=== PATIENT | female | born 1930 | race Caucasian/White ===

== ENCOUNTER 2017-06-24 11:24 | Outpatient (CLI) | payer MEDICARE, OTHER ==
--- NOTE | 2017-06-25 11:52 | Mammography Report ---
DIGITAL SCREENING MAMMOGRAM: 06/24/2017 CLINICAL INDICATION: An 86-year-old with history of benign biopsies, family history of breast cancer, for screening. COMPARISON: 06/2016, 06/2015, 06/2014, 11/2012, 10/2011, 08/2010. TECHNIQUE: Routine CC and MLO projections were obtained of the breasts. FINDINGS: The breasts again demonstrate scattered fibroglandular densities bilaterally. Postoperativ e changes are stable. Coarse and punctate, typically benign calcifications are present. No suspicious masses, clustered microcalcifications, or regions of architectural distortion are identified. IMPRESSION: BENIGN FINDINGS. RECOMMENDATION: ROUTINE ANNUAL SCREENING UNLESS OTHERWISE CLINICALLY INDICATED. BIRADS CATEGORY 2-BENIGN FINDINGS. STANDARD QUALIFYING STATEMENTS 1. This examination was reviewed with the aid of Computer-Aided Detection (CAD). 2. A negative or benign imaging report should not delay biopsy if clinically suspicious findings are present. Consider surgical consultation if warranted. More than 5% of cancers are not identified by i maging. 3. Dense breasts may obscure an underlying neoplasm. JOB #: [id number] EXT JOB #:[id number]
== END 2017-06-24 11:25 | disposition home or self-care (01) ==
LOC: DI.S 11:24
PROVIDERS: ATTEND Internal Medicine
DX: Z12.31 Encounter for screening mammogram for malignant neoplasm of breast (principal); Z80.3 Family history of malignant neoplasm of breast
CPT/HCPCS: 77067

== ENCOUNTER 2018-03-11 13:27 | Outpatient (CLI) | payer MEDICARE, OTHER ==
--- NOTE | 2018-03-11 17:33 | CT Report ---
CT BRAIN WITHOUT CONTRAST: 03/11/2018 CLINICAL INDICATION: Memory loss. TECHNIQUE: Axial CT images of the brain were obtained without intravenous contrast. In accordance with CT protocol optimization, one or more of the following dose reduction techniques were utilized for this exam: Automated exposure control, adjustment of mA and/or KV based on patient size, or use of iterative reconstructive technique. No previous CT is available for comparison. FINDINGS: The ventricles and sulci demonstrate mild symmetric enlargement, compatible with atrophy. Chronic ischemic changes are seen in the periventricular white matter structures. There is no evidence of hemorrhage, mass effect, or midline shift. The visualized orbital contents and paranasal sinuses appear unremarkable. IMPRESSION: ATROPHY AND CHRONIC ISCHEMIC CHANGES. NO EVIDENCE OF HEMORRHAGE OR MASS EFFECT. TD: 03/11/2018 15:53
== END 2018-03-11 13:28 | disposition home or self-care (01) ==
LOC: DI 13:27
PROVIDERS: ATTEND Internal Medicine
DX: R90.89 Other abnormal findings on diagnostic imaging of central nervous system (principal)
CPT/HCPCS: 70450

== ENCOUNTER 2018-07-20 08:38 | Outpatient (CLI) | payer MEDICARE, OTHER | END 2018-07-20 08:39 | disposition critical access hospital (66) | LOC: EMS 08:38 | PROVIDERS: ATTEND Surgery | DX: S01.81XA Laceration without foreign body of other part of head, initial encounter (principal); R49.0 Dysphonia; W19.XXXA Unspecified fall, initial encounter; Y92.003 Bedroom of unspecified non-institutional (private) residence as the place of occurrence of the external cause | CPT/HCPCS: A0425; A0429 ==

== ENCOUNTER 2018-07-20 09:14 | Emergency (ER) | payer MEDICARE, OTHER ==
[2018-07-20] MEDS ORDERED: ACETAMINOPHEN 1,000 MG/100 ML 100 ML IV STA ×2 (09:22→10:39)
[2018-07-20] MEDS ORDERED: IOPAMIDOL-300 100 ML VIAL ONE (09:32)
[2018-07-20 10:12] LABS: BASOPHILS % (AUTO) 0.2 %; CALCIUM 10.2 mg/dL (8.5-10.3); CREATININE 0.6 mg/dL (0.4-1.0); EOSINOPHILS % (AUTO) 0.3 %; LYMPHOCYTES # (AUTO) 1.5 10^3/uL (1.5-3.5); LYMPHOCYTES % (AUTO) 17.1 %; MEAN CORPUSCULAR HEMOGLOBIN 31.6 pg (27.0-31.0); MEAN CORPUSCULAR HGB CONC 33.9 g/dL (32.0-36.0); MEAN CORPUSCULAR VOLUME 93.2 fL (81.0-99.0); MEAN PLATELET VOLUME 8.7 fL (7.9-10.8); MONOCYTES # (AUTO) 0.7 10^3/uL (0.0-1.0); MONOCYTES % (AUTO) 7.7 %; NEUTROPHILS # (AUTO) 6.5 10^3/uL (1.5-6.6); NEUTROPHILS % (AUTO) 74.7 %; PLT - PLATELET COUNT 225 10^3/uL (130-450); RED BLOOD COUNT 4.76 10^6/uL (4.20-5.40); RED CELL DISTRIBUTION WIDTH 14.1 % (12.0-15.0); WHITE BLOOD COUNT 8.7 x10^3/uL (4.8-10.8)
[2018-07-20] MEDS ORDERED: IOPAMIDOL-300 100 ML VIAL IVP ONE (10:27)
--- NOTE | 2018-07-20 10:29 | ED Physician Documentation ---
History of Present Illness - Stated complaint Stated Complaint: GLF - Chief complaint Chief Complaint: Laceration - Additonal information Additional information: hx from pt 87 female got up to go to the bathroom was woozy and fell striking chin and ant neck on unknown object lac to chin swollen neck and hoarse voice no chest pain no abd pain no NV no blood thinners no numbness or weakness Review of Systems Constitutional: denies: Fever Cardiac: denies: Chest pain / pressure Respiratory: denies: Dyspnea GI: denies: Abdominal Pain, Nausea, Vomiting Musculoskeletal: reports: Neck pain Neurologic: reports: Head injury. denies: Focal weakness, Numbness, Syncope, Headache Endocrine: denies: Easy bruising / bleeding Immunocompromised: denies: Immunocompromised PD PAST MEDICAL HISTORY - Past Medical History Past Medical History: Yes Cardiovascular: Hypertension Respiratory: None Endocrine/Autoimmune: None GI: Colon polyps : None Psych: None Musculoskeletal: None Derm: None - Past Surgical History Past Surgical History: Yes General: Colonoscopy Ortho: Hip replacement - Present Medications Home Medications: Ambulatory Orders Medication Instructions Recorded Confirmed Dextromethorphan/Benzocaine 1 each PO Q4H PRN #20 lozenge 07/20/18 [Cepacol Sorethroat-Cough Vanessa] predniSONE [Deltasone] 20 mg PO DAILY 3 Days #3 tablet 07/20/18 - Allergies Allergies/Adverse Reactions: Allergies Allergy/AdvReac Type Severity Reaction Status Date / Time morphine AdvReac Intermediate Emesis Verified 07/20/18 09:21 - Social History Does the pt smoke?: No Smoking Status: Never smoker Does the pt drink ETOH?: No Does the pt have substance abuse?: No - Immunizations Immunizations are current?: Yes PD ED PE NORMAL - Vitals Vital signs reviewed: Yes - HEENT HEENT: Atraumatic, PERRL, Other (lac under chin, nl bite per pt, mandible tender s step off) - Neck Neck: No: No bony TTP (mild diffuse bony TTP, ant neck swelling and abrasion) - Cardiac Cardiac: RRR - Respiratory Respiratory: No respiratory distress - Abdomen Abdomen: Soft - Derm Derm: Normal color - Neuro Neuro: Alert and oriented X 3, model technician 2-12 intact, No motor deficit, No sensory deficit Eye Opening: Spontaneous Motor: Obeys Commands Verbal: Oriented GCS Score: 15 Results - Vitals Vitals: Vital Signs - 24 hr 07/20/18 09:17 Temperature 36.8 C Heart Rate 95 Respiratory 18 Rate Blood Pressure 137/71 H O2 Saturation 98 Oxygen O2 Source Room air - EKG (time done) 0956 Rate: Rate (enter#) (78) Rhythm: NSR (some leads look like a flutter but v3 v4 show distinct P waves) Ischemia: Non specific changes (some coving V1 and V2 are atypical and not classiclally ischemic - no old to compare - got trop as well and it is neg) - Labs Labs: Laboratory Tests 07/20/18 07/20/18 07/20/18 09:35 09:35 09:35 WBC 8.7 RBC 4.76 Hgb 15.0 Hct 44.4 MCV 93.2 MCH 31.6 H MCHC 33.9 RDW 14.1 Plt Count 225 MPV 8.7 Neut # (Auto) 6.5 Lymph # (Auto) 1.5 [place] # (Auto) 0.7 Eos # (Auto) 0.0 Baso # (Auto) 0.0 Absolute Nucleated RBC 0.00 Nucleated RBC % 0.0 Sodium 140 Potassium 3.9 Chloride 102 Carbon Dioxide 30 Anion Gap 8.0 BUN 17 Creatinine 0.6 Estimated GFR (MDRD) 95 Glucose 102 H Calcium 10.2 Troponin I < 0.04 - Rads (name of study) CTA neck Radiology: See rad report (but no dissection or stenosis, soft tissue appears normal, nl pharynx and larynx) CT CS Radiology: See rad report (no fx or subluxations) CTH Radiology: See rad report (no acute) Procedures - Laceration (location) chin Length in cm: 2.5 Wound type: Linear Neurovascular status: Sensory intact, Motor intact Anesthesia: Lidocaine 1% with epi Wound Preparation: Irrigated copiously NS (tech Leeanne) Skin layer closure: Nylon, Interrupted, Size #-0 - enter number (5), Sutures - enter # (4) Other: Patient tolerated well, No complications, Dressing applied, Tetanus booster given Complexity: Simple PD MEDICAL DECISION MAKING - ED course ED course: pt gradually imporved CT scans did not show hematoma aneurysm etc pt ambulating without diff atypical EKG but NSR and pt not having CP and trop neg sutured has supportive medically trained family will dc home - Sepsis Event Vital Signs: Vital Signs - 24 hr 07/20/18 09:17 Temperature 36.8 C Heart Rate 95 Respiratory 18 Rate Blood Pressure 137/71 H O2 Saturation 98 Oxygen O2 Source Room air Departure - Departure Disposition: 01 Home, Self Care Clinical Impression: Laceration Injury of anterior neck Qualifiers: Encounter type: initial encounter Qualified Code(s): S19.9XXA - Unspecified injury of neck, initial encounter Condition: Good Instructions: ED Laceration Facial Sutr Tape Follow-Up: Nancy Haider MD [Primary Care Provider] - (for a recheck this week if not improving) Prescriptions: Dextromethorphan/Benzocaine [Cepacol Sorethroat-Cough Vanessa] 1 each PO Q4H PRN #20 lozenge PRN Reason: sore throat predniSONE [Deltasone] 20 mg PO DAILY 3 Days #3 tablet Comments: The CT scan did not show any fractures, hematomas, or damaged blood vessels After the steroids the stridor/difficulty breathing seemed to improve We watched you for several hours to be safe and you seem to gradually be improving I think it is safe for you to go home Take the steroid once a day to keep the swelling down The cepacol lozenges (or your tea) as needed for sore throat Tylenol for pain Sutures out in 7 days Return if worse in any way
--- NOTE | 2018-07-20 10:29 | CT Report ---
Reason: fall ant neck injury swollen hoarse stridor Procedure Date: 07/20/2018 Accession Number: [id number] / [id number] Procedure: CT - Neck Angio CPT Code: FULL RESULT: EXAM: CT ANGIOGRAM NECK EXAM DATE: 07/20/2018 10:03 AM. CLINICAL HISTORY: 87-year-old with fall and anterior neck injury. Evaluate for vascular pathology. COMPARISON: CERVICAL SPINE W/O 07/20/2018 9:44 AM. TECHNIQUE: Routine axial helical imaging was performed from the skull base through the aortic arch. Reconstructions: Routine multiplanar 3D MIP reconstructions. IV Contrast: ISOVUE 300 80mL. Evaluation of arterial stenosis is based on a NASCET method of measurement. In accordance with CT protocol optimization, one or more of the following dose reduction techniques were utilized for this exam: automated exposure control, adjustment of mA and/or KV based on patient size, or use of iterative reconstructive technique. FINDINGS: Mild atherosclerotic calcifications of the aortic arch with no significant stenosis. The left common carotid artery arises from the right brachiocephalic arch. RIGHT: Common Carotid Artery: Patent without significant stenosis. Carotid Bulb: There is moderate atherosclerotic plaque at the bifurcation and siphon. Stenosis at the bifurcation by NASCET criteria: No significant stenosis. Internal Carotid Artery: No evidence of dissection of the cervical ICA. Vascular calcifications of the cavernous ICA segment with no high-grade stenosis. No evidence of aneurysm along the intracranial ICA. External Carotid Artery: Unremarkable. Vertebral Artery: Patent without significant stenosis. No evidence of dissection. No aneurysm. LEFT: Common Carotid Artery: Patent without significant stenosis. Carotid Bulb: There is moderate atherosclerotic plaque at the bifurcation and siphon. Stenosis at the bifurcation by NASCET criteria: No significant stenosis. Internal Carotid Artery: No evidence of dissection of the cervical ICA. Vascular calcifications of the cavernous ICA segment with no high-grade stenosis. No evidence of aneurysm along the intracranial ICA. External Carotid Artery: Unremarkable. Vertebral Artery: Patent without significant stenosis. No evidence of dissection. No aneurysm. Intracranial Circulation: Normal. No stenoses or aneurysms of the visualized vessels. The visualized basilar artery appears normal. Other: The visualized pharynx and larynx appear normal. Major salivary glands appear normal. Several hypodensities are seen within the right and left thyroid lobe the largest measuring up to 11 mm on the right (series 5, image 170) and 7 mm on the left (series 5, image 142). No cervical lymphadenopathy or necrotic lymph nodes seen. Soft tissues of the neck appear normal. Visualized lung apices are clear. No acute fracture or traumatic subluxation of the cervical spine. Multilevel degenerative changes. There is calcification of the ligaments surrounding the dens and arch of C1. No suspicious osseous lesion. IMPRESSION: 1. The vasculature of the neck demonstrates atherosclerotic plaque but no definite dissection or significant high-grade stenosis. RADIA
[2018-07-20] MEDS ORDERED: DEXAMETHASONE 10 MG/ML VIAL PO STA (11:02)
[2018-07-20] MEDS ORDERED: LIDOCAINE 1%-EPI 1:100000 30 ML MDV SUBQ STA (11:04)
[2018-07-20] MEDS ORDERED: TETANUS/DIPHTHERIA/PERTUSSIS 0.5 ML SYRINGE IM ONE (11:04)
--- NOTE | 2018-07-20 11:09 | CT Report ---
Reason: fall ant neck trauma swelling hoarse stridor Procedure Date: 07/20/2018 Accession Number: [id number] / [id number] Procedure: CT - Cervical Spine W/O CPT Code: FULL RESULT: EXAM: CT ANGIOGRAM NECK. CT SCAN HEAD WITHOUT CONTRAST. CT OF THE CERVICAL SPINE. EXAM DATE:07/20/2018 10:03 AM. CLINICAL HISTORY:Fall with head injury. COMPARISON:None. TECHNIQUE: Routine axial helical CTA imaging was performed from the aortic arch through the [place]. Routine axial CT imaging of the head was performed prior to contrast administration. Reconstructions: Routine multiplanar 3D MIP reconstructions. IV contrast: ISOVUE 300 80mL. NASCET Criteria are used for stenosis measurements. In accordance with CT protocol optimization, one or more of the following dose reduction techniques were utilized for this exam: automated exposure control, adjustment of mA and/or KV based on patient size, or use of iterative reconstructive technique. FINDINGS: CT SCAN HEAD: Parenchyma: No intraparenchymal hemorrhage. No evidence of mass, midline shift, or CT findings of acute infarction. Barr-white differentiation is distinct. Extraaxial Spaces: Normal for age. No subdural or epidural collections identified. Ventricles: Normal in size and position. Sinuses and Orbits: Imaged paranasal sinuses, orbits, and mastoids show no significant abnormality. Bones: No evidence of fracture or calvarial defect. CT ANGIOGRAM EXTRACRANIAL CIRCULATION: The visualized arch is unremarkable aside from mild vascular calcification. Great vessels are patent and unremarkable. Right Carotid: The common carotid, internal carotid, and external carotid arteries are widely patent. No dissection, significant atherosclerotic plaque is identified with the exception of calcification at the carotid bifurcation without significant narrowing. Right carotid is atraumatic. Left Carotid: The common carotid, internal carotid, and external carotid arteries are widely patent. No dissection, significant atherosclerotic plaque is with the exception of calcification at the carotid bifurcation without significant narrowing. Left carotid is atraumatic. Vertebrals: The vertebrobasilar system shows no stenosis, dissection, aneurysm, or significant atherosclerotic disease. The vertebral circulation is left-side dominant and atraumatic. VISUALIZED INTRACRANIAL CIRCULATION: The examination is not tailored towards the intracranial circulation. The visualized portions appear atraumatic. Visualized sinuses are patent. Other: The visualized bones, soft tissues appear atraumatic. There is scarring of the lung apices. CT CERVICAL SPINE: The atlantooccipital relationship is preserved. There is no traumatic listhesis and no CT evidence of traumatic rotatory subluxation. There is no posterior soft tissue stranding. The cervical spinal columns are preserved with scoliosis felt to be degenerative in nature. There are multilevel degenerative changes which are most pronounced at C4 through C7 with loss of disk space height and osteophytosis. The osseous spinal canal is preserved. The prevertebral soft tissues appear unremarkable. IMPRESSION: CT SCAN HEAD: No acute intracranial abnormality. CT ANGIOGRAM NECK: No evidence of trauma to the arterial vasculature of the neck. CT CERVICAL SPINE: The osseous cervical spine demonstrates multilevel degenerative change without evidence of acute trauma. RADIA
[2018-07-20 11:26] VITALS: BP 136/62
[2018-07-20] MEDS ORDERED: BACITRACIN OINT TOP STA (13:29)
== END 2018-07-20 14:00 | disposition home or self-care (01) ==
LOC: EDUNIT# → ED 09:14
DX: I10 Essential (primary) hypertension (principal)
CPT/HCPCS: 12011; 36415; 70450; 70498; 72125; 80048; 84484; 85025; 90471; 90715; 93005; 94644; 94645; 96365; 99283; 99284; A9270; J0131; Q9967

== ENCOUNTER 2020-03-21 17:11 | Outpatient (CLI) | payer MEDICARE, OTHER | END 2020-03-21 17:12 | disposition critical access hospital (66) | LOC: EMS 17:11 | PROVIDERS: ATTEND Surgery | DX: S81.811A Laceration without foreign body, right lower leg, initial encounter (principal); W10.8XXA Fall (on) (from) other stairs and steps, initial encounter; Y92.008 Other place in unspecified non-institutional (private) residence as the place of occurrence of the external cause | CPT/HCPCS: A0425; A0429 ==